=== PATIENT | male | born 1955 | race Caucasian/White ===

== ENCOUNTER 2021-09-20 11:35 | Emergency (ER) | payer OTHER ==
[~2021-09-20] VITALS: Ht 182.9 cm; Wt 95.2 kg
[~2021-09-20 11:35] MED LIST: CIPR500 PO; HYDACE5 PO
[2021-09-20] MEDS ORDERED: COMBIVENT RESPIM4 G1 INH (12:22)
== END 2021-09-20 12:47 | disposition home or self-care (01) ==
LOC: ER 11:35
DX: J45.909 Unspecified asthma, uncomplicated (principal); F17.200 Nicotine dependence, unspecified, uncomplicated
CPT/HCPCS: 71046; 99283-25